=== PATIENT | male | born 2000 | race Caucasian/White ===

== ENCOUNTER 2023-10-30 15:04 | Emergency (ER) | payer OTHER ==
[~2023-10-30] VITALS: Ht 185.4 cm; Wt 88.6 kg
[2023-10-30 15:14] VITALS: TEMP 98.2
[2023-10-30] MEDS ORDERED: PREDNISONE20 MG PO (17:40)
[2023-10-30] MEDS ORDERED: AMOXICILLIN 8751 TAB PO (17:40)
[2023-10-30] MEDS ORDERED: predniSONE 20 MG TAB PO ONE (17:45)
[2023-10-30] MEDS ORDERED: Amoxicillin/Clavulanate K+ 875/125 MG TAB PO ONE (17:45)
[2023-10-30 17:59] VITALS: BP 123/50; PULSE 59
== END 2023-10-30 18:01 | disposition home or self-care (01) ==
LOC: COL.ER 15:04
DX: J01.90 Acute sinusitis, unspecified (principal)
CPT/HCPCS: J7512

== ENCOUNTER 2023-12-16 00:30 | Emergency (ER) | payer OTHER ==
[~2023-12-16] VITALS: Ht 185.4 cm; Wt 88.2 kg
[~2023-12-16 00:30] MED LIST: AMOXICILLIN 8751 TAB PO; PREDNISONE20 MG PO
[2023-12-16] MEDS ORDERED: NS 1,000 ML IV ONE (00:45)
[2023-12-16 00:47] LABS: BASO # 0.1 K/mm3 (0.0-0.2); BASO % 0.5 % (0.0-2.0); EOS # 0.4 K/mm3 (0.0-0.7); EOS % 3.3 % (0.0-4.0); GRAN # 6.7 K/mm3 (1.4-6.5); GRAN % 61.5 % (42.2-75.2); HEMATOCRIT 47.5 % (42.0-52.0); HEMOGLOBIN 16.3 g/dl (13.5-18.0); LYMPH % 27.4 % (20.0-51.0); MEAN CELL VOLUME 91 fl (80.0-100.0); MEAN CORPUSCULAR HEMOGLOBIN 31 pg (27-31); MEAN CORPUSCULAR HGB CONC 34 g/dl (33.0-37.0); MEAN PLATELET VOLUME 10.8 fl (7.4-10.4); MONO # 0.8 K/mm3 (0.1-0.6); MONO % 6.9 % (1.7-9.3); PLATELET COUNT 193 K/mm3 (130-400); RED BLOOD COUNT 5.25 M/mm3 (4.20-5.60)
[2023-12-16 01:01] LABS: ALANINE AMINOTRANSFERASE 31 U/L (0-55); ALBUMIN 4.2 g/dL (3.5-5.0); ALKALINE PHOSPHATASE 63 U/L (40-150); ANION GAP 15 mmol/L (7-16); AST,SGOT 31 U/L (5-34); BILIRUBIN,TOTAL 0.3 mg/dL (0.2-1.2); BLOOD UREA NITROGEN 13 mg/dL (9-21); CALCIUM 9.4 mg/dL (8.4-10.2); CHLORIDE 107 mEq/L (98-107); CREATININE, serum 1.09 mg/dL (0.72-1.25); GLUCOSE 77 mg/dL (70-99); POTASSIUM 4.1 mEq/L (3.5-4.5); SODIUM 141 mEq/L (136-145); TOTAL PROTEIN 7.1 g/dl (6.2-8.1)
[2023-12-16 01:10] LABS: TROPONIN-I < 0.010 ng/mL (0.00-0.033)
[2023-12-16 03:06] VITALS: BP 114/71; PULSE 58; TEMP 98.2
== END 2023-12-16 03:13 | disposition home or self-care (01) ==
LOC: COL.ER 00:30
PROVIDERS: Emergency Medicine
DX: R56.9 Unspecified convulsions (principal)
CPT/HCPCS: J7030